=== PATIENT | female | born 1960 | race Caucasian/White ===

== ENCOUNTER → 2017-01-20 | Outpatient (CLI) | payer MEDICAID ==
--- NOTE | 2017-01-20 10:59 | NUR ---
Katyaal 2 Hr/Client presented to get into OP counseling as her drinking and pot use is out of control.
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
== END | disposition home or self-care (01) ==
LOC: ADTC.GI 08:38
DX: F10.20 Alcohol dependence, uncomplicated (principal); F12.20 Cannabis dependence, uncomplicated